=== PATIENT | male | born 1980 | race African-American/Black ===

== ENCOUNTER 2016-11-12 21:46 | Emergency (ER) | payer SELFPAY ==
[2016-11-12] MEDS ORDERED: HYDROcodone/Acetaminophen 10/325 mg Tablet ONE (22:20)
[2016-11-12] MEDS ORDERED: Naproxen 500 MG TAB ONE (22:20)
[2016-11-12] MEDS ORDERED: AMOXicillin 250 MG CAP ONE (22:20)
== END 2016-11-12 22:21 | disposition home or self-care (01) ==
LOC: MADERS 21:46
DX: J01.90 Acute sinusitis, unspecified (principal); R59.0 Localized enlarged lymph nodes; K08.89 Other specified disorders of teeth and supporting structures; F17.210 Nicotine dependence, cigarettes, uncomplicated
CPT/HCPCS: 99282

== ENCOUNTER 2017-06-28 14:15 | Emergency (ER) | payer SELFPAY | END 2017-06-28 14:40 | disposition home or self-care (01) | LOC: MADERS 14:15 | DX: J11.1 Influenza due to unidentified influenza virus with other respiratory manifestations (principal); F17.210 Nicotine dependence, cigarettes, uncomplicated | CPT/HCPCS: 99283 ==

== ENCOUNTER 2018-09-08 11:09 | Emergency (ER) | payer OTHER | END 2018-09-08 12:30 | disposition home or self-care (01) | LOC: MADERS 11:09 | DX: J11.1 Influenza due to unidentified influenza virus with other respiratory manifestations (principal); F17.210 Nicotine dependence, cigarettes, uncomplicated | CPT/HCPCS: 99283 ==

== ENCOUNTER 2019-01-05 19:54 | Emergency (ER) | payer OTHER, SELFPAY ==
[2019-01-05] MEDS ORDERED: Sodium Chloride 0.9% 1,000 ML ONE (20:09)
[2019-01-05] MEDS ORDERED: Ondansetron PF 4 MG/2 ML Vial ONE (20:09)
[2019-01-05] MEDS ORDERED: Acetaminophen 500 MG TAB ONE (20:30)
[2019-01-05 20:32] LABS: #Basophils 0.1 thou/uL (0.0-0.2); #Lymphocytes 2.4 thou/uL (1.20-3.40); #Monocytes 0.8 thou/uL (0.11-0.59); #Neutrophils 5.8 thou/uL (1.40-6.50); %Basophils 0.7 % (0.0-1.0); %Eosinophils 0.4 % (0.0-10.0); %Lymphocytes 26.1 % (21.0-51.0); %Neutrophils 63.8 % (42.0-75.0); Hemoglobin 15.1 g/dL (14.0-18.0); Mean Corpuscular Hemoglobin 27.9 pg (27.0-31.0); Mean Corpuscular Volume 82.2 fL (78.0-98.0); Mean Platelet Volume 6.8 fL (7.4-10.4); Platelet Count 237 thou/uL (130-400); RBC Distribution Width 12.2 % (11.5-14.5); Red Blood Cell (RBC) Count 5.41 mill/uL (4.70-6.10); White Blood Cell (WBC) Count 9.1 thou/uL (4.8-10.8)
[2019-01-05 20:50] LABS: ALT (SGPT) 25 U/L (8-55); AST (SGOT) 15 U/L (5-34); Albumin 4.4 g/dL (3.5-5.0); Alkaline Phosphatase 108 U/L (40-150); Anion Gap 14 mmol/L (10-20); BUN (Urea Nitrogen) 10 mg/dL (8.9-20.6); Bilirubin, Total 1.1 mg/dL (0.2-1.2); Calc. Creatinine Clearance 0 mL/min (70-130); Calcium 9.3 mg/dL (7.8-10.44); Carbon Dioxide 24 mmol/L (22-29); Chloride 110 mmol/L (98-107); Estimated GFR-MDRD 77; Globulin 2.9 g/dL (2.4-3.5); Glucose 93 mg/dL (70-105); Lipase 22 U/L (8-78); Potassium 3.8 mmol/L (3.5-5.1); Protein, Total 7.3 g/dL (6.0-8.3); Sodium 144 mmol/L (136-145)
== END 2019-01-05 21:16 | disposition home or self-care (01) ==
LOC: MADERS 19:54
DX: E86.0 Dehydration (principal); R11.2 Nausea with vomiting, unspecified; F17.210 Nicotine dependence, cigarettes, uncomplicated
CPT/HCPCS: 80053; 83690; 85025; 96361; 96374; J2405; J7050

== ENCOUNTER 2019-12-13 13:15 | Outpatient (CLI) | payer BC, OTHER ==
--- NOTE | 2019-12-13 15:39 | CT ---
CT OF THE HEAD WTIHOUT CONTRAST: 12/13/19 COMPARISON: None. HISTORY: Dizziness with bilateral blurred vision for three weeks. TECHNIQUE: Axial CT imaging is obtained at 5 mm intervals from the vertex through the skull base without contras t. FINDINGS: There is minimal mucosal thickening involving the anterior ethmoid air cells on the left. There is no displaced calvarial fracture, intracranial hemorrhage, midline shift, or mass effect. IMPRESSION: No intracranial hemorrhage. If symptoms persists, MRI suggested. POS: [facility]
== END 2019-12-13 13:16 | disposition home or self-care (01) ==
LOC: MADCT 13:15
PROVIDERS: ATTEND Family Medicine
DX: H53.8 Other visual disturbances (principal); R51 Headache; R42 Dizziness and giddiness
CPT/HCPCS: 70450

== ENCOUNTER 2020-11-26 18:45 | Emergency (ER) | payer BC | END 2020-11-26 19:27 | disposition home or self-care (01) | LOC: MADERS 18:45 | DX: I10 Essential (primary) hypertension (principal); F17.210 Nicotine dependence, cigarettes, uncomplicated | CPT/HCPCS: 99283 ==

== ENCOUNTER 2021-08-05 10:41 | Emergency (ER) | payer BC ==
[2021-08-05] MEDS ORDERED: Ibuprofen 800 MG TAB ONE (11:00)
[2021-08-05 20:59] LABS: SARS-CoV-2 PCR by NAA DETECTED (NotDetected)
== END 2021-08-05 11:35 | disposition home or self-care (01) ==
LOC: MADERS 10:41
DX: U07.1 COVID-19 (principal); F17.210 Nicotine dependence, cigarettes, uncomplicated
CPT/HCPCS: 99406; U0003; U0005

== ENCOUNTER 2023-11-02 13:34 | Emergency (ER) | payer OTHER, SELFPAY ==
[2023-11-02] MEDS ORDERED: Orphenadrine Citrate 60 MG/2 ML VIAL ONE (14:11)
[2023-11-02] MEDS ORDERED: Ketorolac Tromethamine 30 MG (1 mL) VIAL ONE (14:11)
== END 2023-11-02 15:10 | disposition home or self-care (01) ==
LOC: MADERS 13:34
DX: S33.5XXA Sprain of ligaments of lumbar spine, initial encounter (principal); F17.210 Nicotine dependence, cigarettes, uncomplicated; X50.9XXA Other and unspecified overexertion or strenuous movements or postures, initial encounter
CPT/HCPCS: 72100; 72192; 96372; J1885; J2360

== ENCOUNTER 2025-03-10 23:44 | Emergency (ER) | payer OTHER ==
[2025-03-11] MEDS ORDERED: HYDROcodone/Acetaminophen 10/325 mg Tablet ONE (00:10)
[2025-03-11] MEDS ORDERED: Amoxicillin/Potassium Clav 875 MG TAB ONE (00:10)
== END 2025-03-11 00:36 | disposition home or self-care (01) ==
LOC: MADERS 23:44
DX: K04.7 Periapical abscess without sinus (principal); K02.9 Dental caries, unspecified; F17.210 Nicotine dependence, cigarettes, uncomplicated; Z79.899 Other long term (current) drug therapy
CPT/HCPCS: 64400; J0665